=== PATIENT | female | born 1995 | race Caucasian/White ===

== ENCOUNTER 2018-03-09 11:00 | Day surgery (SDC) | payer OTHER ==
[~2018-03-09 11:00] MED LIST: LR 1,000 ML IV
[2018-03-09 12:36] LABS: CONTROL LINE UCG INT CTR LINE PRESENT; URINE PREG TEST NEGATIVE (NEGATIVE)
[2018-03-09] MEDS: dexameTHASONE 4 MG/ML 1ML VIAL (J1100) IV (12:44)
[2018-03-09] MEDS: AMPICILLIN SOD/SULBACTAM SOD 3 GM in D5W MINI-BAG PLUS 100 ML IV (12:44)
[2018-03-09] MEDS ORDERED: fentaNYL 100 MCG/2 ML INJECTION (J3010) As Ordered (13:08)
[2018-03-09] MEDS ORDERED: MIDAZOLAM INJ 2 MG/2 ML VIAL (J2250) As Ordered (13:08)
[2018-03-09] MEDS ORDERED: LIDOCAINE 2% INJ 100 MG/5 ML SDV (FOR ANES.) As Ordered (13:10)
[2018-03-09] MEDS ORDERED: PROPOFOL 200 MG/20 ML VIAL As Ordered (13:10)
[2018-03-09] MEDS ORDERED: ROCURONIUM BROMIDE 50 MG/5 ML VIAL As Ordered (13:11)
[2018-03-09] MEDS ORDERED: KETOROLAC 60 MG/2 ML VIAL (J1885) As Ordered (13:54)
[2018-03-09] MEDS ORDERED: ONDANSETRON 4MG/2ML VIAL (J2405) As Ordered (13:54)
[2018-03-09] MEDS: LIDOCAINE 2% W/ EPINEPHRINE 1.7 ML DENTAL INJ As Ordered (13:55)
[2018-03-09] MEDS ORDERED: ONDANSETRON 4MG/2ML VIAL (J2405) IV (14:45)
[2018-03-09] MEDS ORDERED: LR 1,000 ML IV (14:45)
[2018-03-09] MEDS ORDERED: PERCOCET 5MG/325MG TAB PO (14:45)
[2018-03-09] MEDS ORDERED: fentaNYL 100 MCG/2 ML INJECTION (J3010) IV (14:45)
[2018-03-09] MEDS ORDERED: HYDROMORPHONE HCL 0.5 MG/ 0.5 ML SYRINGE (J1170 PER 1) IV (14:45)
== END 2018-03-09 15:50 | disposition home or self-care (01) ==
LOC: M SDC 11:00
DX: K02.9 Dental caries, unspecified (principal); K01.1 Impacted teeth; F41.9 Anxiety disorder, unspecified; K21.9 Gastro-esophageal reflux disease without esophagitis; E66.01 Morbid (severe) obesity due to excess calories; Z79.899 Other long term (current) drug therapy
CPT/HCPCS: D7210